=== PATIENT | female | born 1955 | race Caucasian/White ===

== ENCOUNTER → 2016-06-29 | Outpatient (CLI) | payer OTHER | LOC: LAB SRH 14:18 | DX: I10 Essential (primary) hypertension (principal) | CPT/HCPCS: 90047; 90074 ==

== ENCOUNTER 2016-10-04 15:12 | Outpatient (CLI) | payer OTHER ==
--- NOTE | 2016-10-04 17:01 | DIAGNOSTIC IMAGING REPORT ---
PROCEDURE: MR BRAIN W/WO CONTRAST INDICATION: STOREY,DIZZINESS,VERTIGO,DECREASE HEARING TECHNIQUE: Noncontrast T1 sagittal and T2 coronal images of the brain. T2, FLAIR, gradient and diffusion axial images with ADC map. Pregadolinium thin-cut T1 sagittal and coronal images of the pituitary fossa. Following 19 ml of intravenous gadolinium, thin-cut T1 sagittal and coronal images of the pituitary fossa were obtained followed by FAT-SAT T1 axial images of the brain. COMPARISON: Brain MRI 04/06/2012. FINDINGS: Normal sulci, ventricular system and brain parenchyma. There is no hemorrhage, acute CVA, mass or abnormal parenchymal enhancement. Normal CP angles without evidence of a mass or abnormal enhancement. Normal vascular flow voids. Tortuous basilar artery. Empty sella, normal variant. Orbits are unremarkable. Small right maxillary sinus retention cyst. Mastoids are clear. IMPRESSION: 1. Normal MRI of the brain and internal auditory canals
== END 2016-10-04 23:00 ==
LOC: MRI SRH 15:12
DX: R51 Headache (principal); R42 Dizziness and giddiness; H90.8 Mixed conductive and sensorineural hearing loss, unspecified